=== PATIENT | female | born 1980 | race Caucasian/White ===

== ENCOUNTER 2022-02-23 13:49 | Outpatient (CLI) | payer MEDICAID, SELFPAY ==
--- NOTE | 2022-02-23 14:00 | CRLHL7_ITS ---
For Patients: As a result of the Cures Act, medical imaging exams and procedure reports are released immediately into your electronic medical record. You may view this report before your referring provider. If you have questions, please contact your health care provider. BILATERAL DIGITAL SCREENING MAMMOGRAM WITH COMPUTER-AIDED DETECTION CLINICAL HISTORY: Routine screening exam. COMPARISON: RIGHT breast ultrasound 11/25/2016. TECHNIQUE: Digital mammogram in CC and MLO projections including computer-aided detection (CAD). BREAST COMPOSITION: The breasts are heterogeneously dense, which may obscure small masses. FINDINGS: RIGHT Breast: Asymmetric density upper outer quadrant 10 cm from the nipple. LEFT Breast: No suspicious findings. IMPRESSION: RIGHT breast asymmetry/mass. RECOMMENDATIONS: Additional mammographic views of the RIGHT breast including 3D CC/3D MLO. RIGHT breast ultrasound may also be required. [facility] will contact the patient for follow-up. BI-RADS Category 0: Incomplete: Need Additional Imaging Evaluation and/or Prior Mammograms for Comparison A lay language report of this examination will be provided to the patient. Dictated by Hubert Boateng MD @ 02/24/2022 12:53:24 PM lew/Dictated by: Hubert Boateng MD @ 02/24/2022 12:53:00 PM (Electronically Signed)
== END 2022-02-23 13:50 | disposition home or self-care (01) ==
LOC: MAMMO 13:50
PROVIDERS: Visit Provider Physician Assistant Medical
DX: Z12.31 Encounter for screening mammogram for malignant neoplasm of breast (principal); N63.10 Unspecified lump in the right breast, unspecified quadrant
CPT/HCPCS: 77063; 77067

== ENCOUNTER 2022-02-27 08:55 | Outpatient (CLI) | payer MEDICAID, SELFPAY ==
--- NOTE | 2022-02-27 08:45 | CRLHL7_ITS ---
For Patients: As a result of the Cures Act, medical imaging exams and procedure reports are released immediately into your electronic medical record. You may view this report before your referring provider. If you have questions, please contact your health care provider. DIGITAL DIAGNOSTIC RIGHT MAMMOGRAM USING TOMOSYNTHESIS AND COMPUTER-AIDED DETECTION RIGHT BREAST ULTRASOUND CLINICAL HISTORY: RIGHT breast mass/asymmetry. COMPARISON: 02/23/2022. TECHNIQUE: Digital RIGHT mammogram in two projections. Tomosynthesis and CAD utilized. Real-time ultrasound imaging of RIGHT breast with imaging documentation. BREAST COMPOSITION: The breast is heterogeneously dense, which may obscure small masses. FINDINGS: 3D XCCL and 3D true lateral RIGHT breast mammogram submitted. Dense tissue again noted within the upper outer quadrant RIGHT breast 10 cm from the nipple without architectural distortion. Normal axillary lymph nodes. No suspicious calcifications. Targeted RIGHT breast ultrasound performed in the upper outer quadrant RIGHT breast 9-12 o`clock 10 cm from the nipple. Normal dense fibroglandular tissue is present. No solid masses or fibrocystic change. IMPRESSION: Normal additional views RIGHT breast and normal targeted RIGHT breast ultrasound with normal dense fibroglandular tissue. No evidence of malignancy. RECOMMENDATIONS: Annual BILATERAL screening mammography. Results and recommendations discussed with the patient. BI-RADS Category 2: Benign A lay language report of this examination will be provided to the patient. Dictated by Hubetr Boateng MD @ 02/27/2022 11:43:11 AM /Dictated by: Hubert Boateng MD @ 02/27/2022 11:43:00 AM (Electronically Signed)
--- NOTE | 2022-02-27 09:15 | CRLHL7_ITS ---
For Patients: As a result of the Cures Act, medical imaging exams and procedure reports are released immediately into your electronic medical record. You may view this report before your referring provider. If you have questions, please contact your health care provider. PLEASE SEE DIGITAL DIAGNOSTIC RIGHT MAMMOGRAM PERFORMED SAME DAY CRL:lew [email or web address]/Dictated by: Hubert Boateng MD @ 02/27/2022 11:43:00 AM (Electronically Signed)
== END 2022-02-27 08:56 | disposition home or self-care (01) ==
LOC: MAMMO 08:56
PROVIDERS: Visit Provider Physician Assistant Medical
DX: R92.8 Other abnormal and inconclusive findings on diagnostic imaging of breast (principal); N63.10 Unspecified lump in the right breast, unspecified quadrant
CPT/HCPCS: 76642; 77065; 87086; G0279

== ENCOUNTER 2022-03-11 10:55 | Outpatient (CLI) | payer MEDICAID, SELFPAY ==
[2022-03-11 15:06] LABS: Free T4 Free Thyroxine* 1.44 ng/dL (0.70-1.85)
[2022-03-11 15:29] LABS: Thyroid Stimulating Hormone* < 0.015 uIU/mL (0.270-4.20)
== END 2022-03-11 10:56 | disposition home or self-care (01) ==
PROVIDERS: PCP Physician Assistant Medical; Visit Provider Physician Assistant Medical
DX: E03.9 Hypothyroidism, unspecified (principal)
CPT/HCPCS: 84439; 84443

== ENCOUNTER 2022-06-15 12:43 | Outpatient (CLI) | payer MEDICAID, SELFPAY ==
[2022-06-15 22:56] LABS: TSH With Reflex to FT4* < 0.015 uIU/mL (0.270-4.200)
[2022-06-16 04:42] LABS: Free T4 Free Thyroxine* 1.33 ng/dL (0.70-1.85)
== END 2022-06-15 12:44 | disposition home or self-care (01) ==
LOC: FRMREF 13:50
PROVIDERS: PCP Physician Assistant Medical; Visit Provider Family Medicine
DX: E03.9 Hypothyroidism, unspecified (principal)
CPT/HCPCS: 84439; 84443

== ENCOUNTER 2022-08-05 10:18 | Outpatient (CLI) | payer MEDICAID, SELFPAY ==
[2022-08-05 21:33] LABS: Albumin* 4.7 g/dL (3.3-5.0); Chloride* 102 mmol/L (96-114); Sodium* 140 mmol/L (135-149)
[2022-08-05 21:34] LABS: Potassium* 4.8 mmol/L (3.6-5.1)
[2022-08-05 21:35] LABS: Cholesterol* 226 mg/dL (90-199)
[2022-08-05 21:36] LABS: Alkaline Phosphatase* 78 U/L (40-150); Aspartate Amino Transferase* 23 U/L (12-35); Bilirubin Total* 0.8 mg/dL (0.1-1.5); Blood Urea Nitrogen* 13 mg/dL (5-24); Carbon Dioxide* 29 mmol/L (20-32); Creatinine* 0.6 mg/dL (0.5-1.5); Estimated Glomerular Filt Rate 116 ml/min; Glucose* 103 mg/dL (60-115); Total Protein* 7.9 g/dL (6.0-8.3); Triglycerides* 206 mg/dL (40-149)
[2022-08-05 21:37] LABS: Alanine Aminotransferase* 18 U/L (4-35); Calcium* 9.9 mg/dL (8.4-10.6); HDL Cholesterol* 60 mg/dL (>=50); LDL Cholesterol Calculated 125 mg/dL (<100)
== END 2022-08-05 10:19 | disposition home or self-care (01) ==
PROVIDERS: PCP Physician Assistant Medical; Visit Provider Physician Assistant Medical
DX: Z01.419 Encounter for gynecological examination (general) (routine) without abnormal findings (principal); E03.9 Hypothyroidism, unspecified; F32.A Depression, unspecified; F41.9 Anxiety disorder, unspecified; F90.0 Attention-deficit hyperactivity disorder, predominantly inattentive type; G47.00 Insomnia, unspecified; Z13.6 Encounter for screening for cardiovascular disorders
CPT/HCPCS: 80053; 80061; 84439; 84443

== ENCOUNTER 2024-01-05 08:47 | Outpatient (CLI) | payer BC, SELFPAY | END 2024-01-05 08:48 | disposition home or self-care (01) | LOC: NFLDREF 08:48 | PROVIDERS: PCP Physician Assistant Medical; Visit Provider Family Medicine | DX: R39.9 Unspecified symptoms and signs involving the genitourinary system (principal); N39.0 Urinary tract infection, site not specified | CPT/HCPCS: 87086; 87186 ==

== ENCOUNTER 2024-03-20 11:13 | Outpatient (CLI) | payer BC, SELFPAY | END 2024-03-20 11:14 | disposition home or self-care (01) | PROVIDERS: PCP Physician Assistant Medical; Visit Provider Physician Assistant Medical | DX: E03.9 Hypothyroidism, unspecified (principal); Z11.3 Encounter for screening for infections with a predominantly sexual mode of transmission | CPT/HCPCS: 84443; 86592; 86703; 86706; 86803; 87340 ==

== ENCOUNTER 2024-07-24 07:39 | Outpatient (CLI) | payer OTHER, SELFPAY ==
[2024-07-28 06:04] LABS: HPV Source Cervical/Vag; HPV, High Risk by TMA Detected
[2024-07-30 06:07] LABS: HPV Genotype 16 by TMA Detected; HPV Genotype 18/45 by TMA Not Detected; HPVG Source Cervical/Vag
== END 2024-07-24 07:40 | disposition home or self-care (01) ==
PROVIDERS: PCP Physician Assistant Medical; Visit Provider Physician Assistant Medical
DX: E03.9 Hypothyroidism, unspecified (principal); F90.0 Attention-deficit hyperactivity disorder, predominantly inattentive type; F41.9 Anxiety disorder, unspecified; F32.A Depression, unspecified; F51.01 Primary insomnia; Z13.6 Encounter for screening for cardiovascular disorders
CPT/HCPCS: 80053; 80061; 84443; 87491; 87591; 87624; 87625; 88141; 88142

== ENCOUNTER 2024-09-12 12:35 | Outpatient (CLI) | payer OTHER, SELFPAY | END 2024-09-12 12:36 | disposition home or self-care (01) | LOC: NFLDREF 09-15 02:28 | PROVIDERS: PCP Physician Assistant Medical; Referring Provider Physician Assistant Medical; Visit Provider Physician Assistant Medical | DX: N30.01 Acute cystitis with hematuria (principal) | CPT/HCPCS: 87086 ==

== ENCOUNTER 2025-06-25 09:43 | Outpatient (CLI) | payer OTHER, SELFPAY | END 2025-06-25 09:44 | disposition home or self-care (01) | LOC: NFLDREF 06-30 02:45 | PROVIDERS: PCP Physician Assistant Medical; Referring Provider Physician Assistant Medical; Visit Provider Physician Assistant Medical | DX: N76.0 Acute vaginitis (principal); E03.9 Hypothyroidism, unspecified; Z13.9 Encounter for screening, unspecified | CPT/HCPCS: 80053; 80061; 84443 ==